=== PATIENT | male | born 1960 | race Caucasian/White ===

== ENCOUNTER → 2017-05-28 | Outpatient (REF) | payer BC ==
[~2017-05-28] MED LIST: PERCOCET PO; [UNRECOGNIZED DRUG - REMARK] OR; no home meds
== END ==
LOC: M SMT 16:59
PROVIDERS: ATTEND Urology
DX: Z85.51 Personal history of malignant neoplasm of bladder (principal)

== ENCOUNTER → 2017-11-20 | Outpatient (REF) | payer BC | LOC: M SMT 17:01 | DX: Z85.51 Personal history of malignant neoplasm of bladder (principal) | CPT/HCPCS: 88108 ==

== ENCOUNTER → 2017-11-26 | Outpatient (CLI) | payer BC ==
[2017-11-26 14:46] LABS: PSA SCREENING 2.04 NG/ML (< 4.0)
== END ==
LOC: M SMT 10:11
DX: Z12.5 Encounter for screening for malignant neoplasm of prostate (principal)

== ENCOUNTER → 2018-05-16 | Outpatient (CLI) | payer BC | LOC: M RAD 16:04 | DX: Z12.2 Encounter for screening for malignant neoplasm of respiratory organs (principal); Z87.891 Personal history of nicotine dependence; R91.1 Solitary pulmonary nodule; Z90.2 Acquired absence of lung [part of] | CPT/HCPCS: G0297 ==

== ENCOUNTER → 2018-08-11 | Outpatient (REF) | payer BC, OTHER | LOC: M SMT 13:11 | PROVIDERS: ATTEND Urology | DX: Z85.51 Personal history of malignant neoplasm of bladder (principal) ==

== ENCOUNTER 2018-09-25 09:50 | Day surgery (SDC) | payer OTHER ==
[~2018-09-25] VITALS: Ht 180.3 cm; Wt 94.8 kg
[~2018-09-25 09:50] MED LIST changes: +NS 1,000 ML IV ONE; +OMEP20CA3 PO; +PROPOFOL 200 MG/20 ML VIAL As Ordered ONE
--- NOTE | 2018-09-25 12:03 | ROOR ---
Patient Name: Lang Sexton Procedure Date: 09/25/2018 11:45 AM Date of : 1960 Age: 58 Room: [facility] Gender: Male Note Status: Finalized Procedure: Colonoscopy Indications: Screening in patient at increased risk: Family history of 1st-degree relative with colorectal cancer Providers: Orlando Greene Jr, MD Referring MD: LYNNETTE SANDERS DO Requesting Provider: Medicines: Propofol per Anesthesia Complications: No immediate complications. Procedure: Pre-Anesthesia Assessment: - Prior to the procedure, a History and Physical was performed, and patient medications and allergies were reviewed. The patient is competent. The risks and benefits of the procedure and the sedation options and risks were discussed with the patient. All questions were answered and informed consent was obtained. Patient identification and proposed procedure were verified by the physician and the nurse in the pre-procedure area and in the procedure room. Mental Status Examination: alert and oriented. Airway Examination: normal oropharyngeal airway and neck mobility. Respiratory Examination: clear to auscultation. CV Examination: normal. ASA Grade Assessment: II - A patient with mild systemic disease. After reviewing the risks and benefits, the patient was deemed in satisfactory condition to undergo the procedure. The anesthesia plan was to use moderate sedation / analgesia (conscious sedation). Immediately prior to administration of medications, the patient was re-assessed for adequacy to receive sedatives. The heart rate, respiratory rate, oxygen saturations, blood pressure, adequacy of pulmonary ventilation, and response to care were monitored throughout the procedure. The physical status of the patient was re-assessed after the procedure. The Colonoscope was introduced through the anus and advanced to the cecum, identified by appendiceal orifice and ileocecal valve. The colonoscopy was performed without difficulty. The patient tolerated the procedure well. The quality of the bowel preparation was adequate. Findings: The rectum, recto-sigmoid colon, sigmoid colon, descending colon, transverse colon, ascending colon, cecum, appendiceal orifice and ileocecal valve appeared normal. Non-bleeding external and internal hemorrhoids were found during endoscopy. The hemorrhoids were moderate. Impression: - The rectum, recto-sigmoid colon, sigmoid colon, descending colon, transverse colon, ascending colon, cecum, appendiceal orifice and ileocecal valve are normal. - Non-bleeding external and internal hemorrhoids. - No specimens collected. Recommendation: - Repeat colonoscopy in 5 years for screening purposes. Orlando Greene MD Orlando Greene Jr, MD 09/25/2018 12:02:35 PM This report has been signed electronically. Number of Addenda: 0 Note Initiated On: 09/25/2018 11:45 AM Estimated Blood Loss: Estimated blood loss: none.
[2018-09-25 12:20] VITALS: BP 130/82
== END 2018-09-25 12:29 | disposition home or self-care (01) ==
LOC: M OPP 09:50
PROVIDERS: ATTEND Surgery
DX: Z12.11 Encounter for screening for malignant neoplasm of colon (principal); Z80.0 Family history of malignant neoplasm of digestive organs; K64.8 Other hemorrhoids; Z87.891 Personal history of nicotine dependence

== ENCOUNTER → 2019-05-18 | Outpatient (CLI) | payer BC, OTHER ==
[~2019-05-18] MED LIST changes: -NS 1,000 ML IV ONE; -OMEP20CA3 PO; +OMEP20CA4 PO; +OXYC1TAB23 PO; -PERCOCET PO; -PROPOFOL 200 MG/20 ML VIAL As Ordered ONE
--- NOTE | 2019-05-19 09:07 | REP ---
Clinical: Lung screening. History smoking. Comparison: 05/16/2018 Technique: Axial low-dose noncontrast images from the thoracic inlet to the upper abdomen using lung screening technique. Findings: Evidence of prior right upper lobectomy again noted with stable scarring along the periphery of the right hemithorax. Stable 6 mm noncalcified nodule in the right middle lobe (image 55) remains unchanged compared through 2013. No consolidation, new significant nodule or mass lesion is appreciated. No effusion. No pneumothorax. Tracheobronchial tree is relatively patent. Mediastinum is within normal limits / stable. Impression: Lung-RADS category II. Stable nodule and postsurgical changes. Management recommendations include annual low-dose CT evaluation. Electronically Signed by Rancho Rader MD 05/19/2019 08:59 A
== END ==
LOC: M RAD 16:19
PROVIDERS: ATTEND Internal Medicine Pulmonary Disease
DX: Z87.891 Personal history of nicotine dependence (principal); Z85.118 Personal history of other malignant neoplasm of bronchus and lung

== ENCOUNTER → 2019-08-14 | Outpatient (REF) | payer BC ==
[~2019-08-14] MED LIST changes: +OMEP1CAP73 PO; -OMEP20CA4 PO
== END ==
LOC: M SMT 16:45
PROVIDERS: ATTEND Urology
DX: Z85.51 Personal history of malignant neoplasm of bladder (principal)

== ENCOUNTER → 2019-08-24 | Outpatient (CLI) | payer BC ==
--- NOTE | 2019-08-25 07:51 | ECGEPIP ---
[facility] Test Date: 2019-08-24 Pat Name: SALINA SOUSA Department: Room: - Gender: Male Manager Er: MITRA : 1960 Requested By: EVELIA DE LA ROSA Order Number: [id number] Reading MD: Castillo Dorsey Measurements Intervals [place] Rate: 67 P: 63 RI: 142 QRS: 72 QRSD: 93 T: 74 QT: 384 QTc: 408 Interpretive Statements SINUS RHYTHM somewhat low limb voltage Otherwise normal Electronically Signed on 08-25-2019 7:51:14 EST by Castillo Dorsey
== END ==
LOC: M EKG 10:01
PROVIDERS: ATTEND Anesthesiology
DX: C34.90 Malignant neoplasm of unspecified part of unspecified bronchus or lung (principal)

== ENCOUNTER 2019-08-25 13:01 | Day surgery (SDC) | payer BC ==
[~2019-08-25] VITALS: Ht 180.3 cm; Wt 96.6 kg
[~2019-08-25 13:01] MED LIST changes: +LR 1,000 ML IV ONE; +ceFAZolin SOD 2 GM in IV 1 EA IV ONE
[2019-08-25] MEDS ORDERED: propofoL 200 MG/20 ML VIAL As Ordered ONE (14:08)
[2019-08-25] MEDS ORDERED: LIDOCAINE 2% INJ 100 MG/5 ML SDV (FOR ANES.) As Ordered ONE (14:08)
[2019-08-25] MEDS ORDERED: ONDANSETRON 4MG/2ML VIAL (J2405) As Ordered ONE (14:08)
[2019-08-25] MEDS ORDERED: fentaNYL 100 MCG/2 ML INJECTION (J3010) As Ordered ONE (14:08)
[2019-08-25] MEDS ORDERED: MIDAZOLAM INJ 2 MG/2 ML VIAL (J2250) As Ordered ONE (14:09)
[2019-08-25] MEDS ORDERED: BUPIVACAINE/EPIN 0.25% 30 ML VIAL As Ordered ONE (15:50)
[2019-08-25] MEDS ORDERED: dexameTHASONE 4 MG/ML 1ML VIAL (J1100) As Ordered ONE (16:00)
[2019-08-25] MEDS ORDERED: ACETAMINOPHEN 1000MG 100ML IV BTL (OFIRMEV) (J0131 PER 10MG) As Ordered ONE (16:44)
[2019-08-25] MEDS ORDERED: ONDANSETRON 4MG/2ML VIAL (J2405) IV PRN (17:45)
[2019-08-25] MEDS ORDERED: LR 1,000 ML IV SCH (17:45)
[2019-08-25] MEDS ORDERED: HYDROMORPHONE HCL 0.5 MG/ 0.5 ML SYRINGE (J1170 PER 1) IV PRN (17:45)
[2019-08-25] MEDS: fentaNYL 100 MCG/2 ML INJECTION (J3010) IV PRN ×4 (17:47→18:19)
[2019-08-25] MEDS: oxyCODONE 5MG TAB PO PRN ×2 (17:47→18:20)
[2019-08-25] MEDS ORDERED: oxyCODONE 5MG TAB PO PRN ×2 (18:00)
[2019-08-25 19:35] VITALS: BP 152/88
--- NOTE | 2019-08-26 14:58 | RO ---
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 PROCEDURE: Right small finger FDS tenolysis along with Av cesario placement, flexor sheath reconstruction along with dorsal capsulotomy of the proximal interphalangeal (PIP) and distal interphalangeal (DIP). SURGEON: Liu Ram MD CYCLE DIRECTOR: ANESTHESIA: Moderate sedation with local anesthesia. INDICATION: 58-year-old male who suffered an FDP laceration back in mid May. He likely had a partial laceration as he was lifting something heavy, shortly after he felt a pop and since that date he has been unable to flex his small finger. Unfortunately he did not present to my office until approximately 2 months afterwards, at which point he discussed a two stage flexor tendon reconstruction. We discussed the risks, including but not limited to, infection, damage to surrounding structures, and need for further surgery, and incomplete relief. Patient wished to proceed. PREOPERATIVE ANTIBIOTICS: 2 grams of Ancef. COMPLICATIONS: None. TOURNIQUET TIME: Approximately 52 minutes. ESTIMATED BLOOD LOSS: Minimal. OPERATIVE DESCRIPTION: Patient was brought back to the OR in supine position and underwent general anesthesia at which point the right arm was prepped and draped in the usual fashion. Then we had a time out confirming site, side and surgery, and once in agreement we made a Lelia type incision going all the way from the tip of the small finger down towards the distal palm crease. We elevated the skin flaps careful to identify the radial, ulnar and digital nerves and arteries, to preserve them. Once we entered into the palm, we released the A1 jg, identified FDS and FDP remnants still there. We then tried to pull on the FDP to have it release, but it was clearly well adherent to the area. We then lifted up the site of the previous laceration over the A3 jg and were able to identify FDS, which was actually in continuity, but FDP was lacerated here and thickly adhered to the surrounding area. We were able to debride the area and remove FDP from the sheath. Then using a combination of tenotomies and a Jean elevator we were able to reopen the area of adhesed tissue through the intact A2 jg and also released the remnant of the FDP distally and remove this. We had to do extensive tenolysis of the FDS in order to allow free movement, but by the end of this were able to pull on the FDS in the palm and flex the PIP. Due to joint contractures, which had occurred, at this point we elevated the skin on the radial aspect of the finger in order to get slightly dorsally and do a dorsal capsulotomy in both the DIP and the PIP. After manual manipulation we were able complete the dorsal capsulotomy and able to get full range of motion of the DIP and PIP. At this point, we selected a 4 mm 25 cm Av cesario, from [employer], and secured it to the distal aspect of the flexor sheath with a mattress suture using #3-0 Prolene. We then sutured it to the stump of the FDP in the palm with #3-0 Prolene and passed our remaining portion about 4-6 cm proximal to the proximal wrist crease by making a small transverse incision over the ulnar aspect of the forearm and passing a Paul instrument deep down along the interosseous membrane through the carpal tunnel and into the palm, we added a whipstitch at the end of the Av cesario with #2-0 Vicryl and used this to pass it proximally, at which point we pulled it just past the skin and removed the tail end letting it lay freely in the distal forearm. At this point, we were happy with our reconstruction so we repaired the A3 jg with #3-0 PDS, irrigated the wounds thoroughly and closed the Lelia type incision with #3-0 nylon along with the transverse incision in the forearm. We then placed a dressing of Adaptic, gauze, Kerlix and Chris over the finger. The patient was awakened and taken to the PACU in stable condition. POSTOPERATIVE PLAN: We will see him soon within the week in the office for wound check at that time and get him into physical therapy to immediately start range of motion. JERRELL
== END 2019-08-25 20:04 | disposition home or self-care (01) ==
LOC: M SDC 13:01
PROVIDERS: ATTEND Orthopaedic Surgery Hand Surgery
DX: S56.127A Laceration of flexor muscle, fascia and tendon of right little finger at forearm level, initial encounter (principal); X50.0XXA Overexertion from strenuous movement or load, initial encounter; Y92.89 Other specified places as the place of occurrence of the external cause; K21.9 Gastro-esophageal reflux disease without esophagitis; M54.5 Low back pain; Z85.118 Personal history of other malignant neoplasm of bronchus and lung; Z90.2 Acquired absence of lung [part of]; Z85.51 Personal history of malignant neoplasm of bladder; Z87.891 Personal history of nicotine dependence; Z79.899 Other long term (current) drug therapy
CPT/HCPCS: 26390; 26442; 26525; C1763; J0131; J0690; J1100; J2250; J2405; J3010

== ENCOUNTER → 2019-11-13 | Outpatient (CLI) | payer BC ==
[~2019-11-13] MED LIST changes: -LR 1,000 ML IV ONE; -ceFAZolin SOD 2 GM in IV 1 EA IV ONE
== END ==
LOC: M LABSMTC 10:36
PROVIDERS: ATTEND Anesthesiology
DX: Z01.818 Encounter for other preprocedural examination (principal); Z11.59 Encounter for screening for other viral diseases

== ENCOUNTER 2019-11-16 12:42 | Day surgery (SDC) | payer BC ==
[~2019-11-16] VITALS: Ht 180.3 cm; Wt 97.5 kg
[~2019-11-16 12:42] MED LIST changes: +LIDOCAINE 1% MDV 20ML VIAL SQ PRN; +LR 1,000 ML IV ONE
[2019-11-16] MEDS ORDERED: ceFAZolin SOD 2 GM in IV 1 EA IV ONE (16:30)
[2019-11-16] MEDS ORDERED: BUPIVACAINE/EPIN 0.25% 30 ML VIAL As Ordered ONE (18:01)
[2019-11-16] MEDS ORDERED: dexameTHASONE 4 MG/ML 1ML VIAL (J1100 PER 1MG) As Ordered ONE (18:12)
[2019-11-16] MEDS ORDERED: LIDOCAINE 2% 100MG/5ML SDV (FOR ANES.) As Ordered ONE (18:12)
[2019-11-16] MEDS ORDERED: MIDAZOLAM INJ 2MG/2ML VIAL (J2250 PER 1MG) As Ordered ONE (18:12)
[2019-11-16] MEDS ORDERED: METOCLOPRAMIDE INJ 10MG/2ML VIAL (J2765 PER 1) As Ordered ONE (18:12)
[2019-11-16] MEDS ORDERED: KETOROLAC 60 MG/2 ML VIAL As Ordered ONE (18:12)
[2019-11-16] MEDS ORDERED: ROCURONIUM BROMIDE 50 MG/5 ML VIAL As Ordered ONE ×2 (18:12→20:13)
[2019-11-16] MEDS ORDERED: fentaNYL 250 MCG/5 ML INJECTION (J3010) As Ordered ONE (18:12)
[2019-11-16] MEDS ORDERED: propofoL 200 MG/20 ML VIAL As Ordered ONE (18:12)
[2019-11-16] MEDS ORDERED: SUGAMMADEX SODIUM 500 MG/5 ML VIAL (BRIDION) As Ordered ONE (18:12)
[2019-11-16] MEDS ORDERED: ONDANSETRON 4MG/2ML VIAL As Ordered ONE (18:12)
[2019-11-16] MEDS ORDERED: ACETAMINOPHEN 1000MG 100ML IV BTL (OFIRMEV) (J0131 PER 10MG) As Ordered ONE (19:27)
[2019-11-16] MEDS: fentaNYL 100 MCG/2 ML INJECTION (J3010) IV PRN ×4 (19:50→20:15)
[2019-11-16] MEDS ORDERED: fentaNYL 100 MCG/2 ML INJECTION (J3010) As Ordered ONE (20:00)
[2019-11-16] MEDS: PERCOCET 5MG/325MG TAB PO PRN ×2 (20:00→20:34)
[2019-11-16] MEDS ORDERED: PERCOCET 5MG/325MG TAB As Ordered ONE (20:00)
[2019-11-16] MEDS ORDERED: ONDANSETRON 4MG/2ML VIAL IV PRN (20:15)
[2019-11-16] MEDS ORDERED: LR 1,000 ML IV SCH (20:15)
[2019-11-16] MEDS ORDERED: oxyCODONE 5MG TAB PO PRN (20:15)
[2019-11-16 21:52] VITALS: BP 148/71
--- NOTE | 2019-11-16 22:22 | RO ---
DATE OF PROCEDURE: 11/16/2019 PREPROCEDURE DIAGNOSIS: Right small finger chronic flexor tendon laceration, status post Av cesario placement. POSTPROCEDURE DIAGNOSIS: Right small finger chronic flexor tendon laceration, status post Av cesario placement. PROCEDURE: Right small finger removal of Av cesario, flexor digitorum profundus (FDP) reconstruction with palmaris longus autograft. SURGEON: Liu Ram MD TRANSPORT DRIVER: None. ANESTHESIA: General. PREOPERATIVE ANTIBIOTICS: 2 grams of Ancef. BLOOD LOSS: Minimal. TOURNIQUET TIME: 1.5 hours COMPLICATIONS: None. SPECIMENS: None. INDICATIONS: A 59-year-old male who suffered a chronic flexor tendon laceration in both his FDP and FDS in the early fall, underwent a Av cesario placement after presenting in a chronic fashion. We discussed the risks and benefits of further procedure and restore flexion to the small finger, including, but not limited to, infection, damage to surrounding structures, incomplete relief, and need for further surgery. Patient expressed understanding and agreement with our plan and wished to proceed. DESCRIPTION OF PROCEDURE: The patient was brought back to the operating room (OR) in the supine position, underwent general anesthesia. The right arm was prepped and draped in the usual fashion. We had a time-out to confirm site, side, and surgery. Once in agreement, we did an ulnar-sided wrist block. We then opened up the distal extent of our previous Lelia incision over the distal and middle phalanx, exposing the A5 gj. We sharply dissected the distal extent of the A5 jg exposing the FDP stump along with the Av cesario placement there. We then exposed our more proximal extent of the Lelia incision in the palm, dissected sharply through exposing the Av cesario deep in the palm. At this point, the proximal extent of the FDP stump was severely scarred and in poor condition. We then explored radially and identified the FDP to the small finger. At this point, we made the decision to harvest our palmaris longus graft. We made a small transverse incision overlying the distal wrist crease, placed the hemostat and retrieved the palmaris longus from the wound. It was placed under tension to identify musculotendinous junction proximally. We made a 1 cm incision proximally exposing the muscle belly at the musculotendinous junction of palmaris longus. We pulled it out of the wound, at which point we used a skin blade to transect it. And then using hemostat, brought it out of our distal wound, at which point we pulled traction on it and used a #15 blade deep to remove it from its insertion to get maximal length, at which point, we removed any muscle bellies remaining on the tendon with an osteotome. We then retrieved the proximal center of a Av cesario and sutured it to the distal extent of our palmaris longus graft with a #3-0 Vicryl, and used this to pass it through the new flexor sheath. Once the graft was placed through the sheath, we removed the Av cesario completely. We then debrided the distal phalanx of the stump using curettes, prepped the bone, at which point we inserted a 1.75 x 5 mm Katiuska corkscrew with Arthrex loaded with #3-0 FiberWire. We then placed a whipstitch with #3-0 PDS through the distal extent of the palmaris longus graft and used a Cristi needle to pass those limbs dorsally, radial and ulnar to the distal phalanx minding to not injure the nail bed distally. We then placed a horizontal mattress stitch using the #3-0 FiberWire, we anchored to compress the graft to the distal phalanx. Once it was secured in place, we made a dorsal incision just proximal to our Cristi needle PDS stitches, made a U-type incision, retrieved the #3-0 PDS through this wound and tied it over the dorsal aspect of the distal phalanx in a [id number] fashion. At this point, we were very happy with our fixation distally. We then turned proximally. We pulled the ring finger FDP deep out of the palm and secured it proximally to our palmaris longus graft in a Pulvertaft repair using an #11 blade to pass the suture through the FDP for the ring finger. This was secured in place using multiple interrupted #4-0 Ethibond sutures. We were happy with the cascade. We were able to note it was just over tightened in the ring finger and there was a nice cascade that had developed as result. Once we were happy with how well secured it was, we removed the excess palmaris longus graft. We checked our tenodesis, and we were very happy with our fixation and graft placement, at which point we irrigated the wound thoroughly throughout and closed them with #3-0 nylon. We then placed the patient in a dorsal blocking splint with the wrist in flexion. Patient was awakened and taken to the post-anesthesia care unit (PACU) in stable condition. POSTOPERATIVE PLAN: Patient will be seen immediately over the next couple of days by his physical therapist, have a Thermoplastic splint made, and clips glued to his nails to start the Feliciaert protocol. I will see him at 2 weeks, at which point I will remove the sutures. The patient expressed understanding and agreement with that plan ahead of time. JERRELL
== END 2019-11-16 22:00 | disposition home or self-care (01) ==
LOC: M SDC 12:42
PROVIDERS: ATTEND Orthopaedic Surgery Hand Surgery
DX: S66.106A Unspecified injury of flexor muscle, fascia and tendon of right little finger at wrist and hand level, initial encounter (principal); X58.XXXA Exposure to other specified factors, initial encounter; Y92.89 Other specified places as the place of occurrence of the external cause; Y93.9 Activity, unspecified; Y99.9 Unspecified external cause status; K21.9 Gastro-esophageal reflux disease without esophagitis; N40.0 Benign prostatic hyperplasia without lower urinary tract symptoms; Z85.118 Personal history of other malignant neoplasm of bronchus and lung; Z85.51 Personal history of malignant neoplasm of bladder; Z90.2 Acquired absence of lung [part of]; Z92.21 Personal history of antineoplastic chemotherapy; Z79.899 Other long term (current) drug therapy
CPT/HCPCS: 26392; C1713; J0131; J0690; J1100; J1885; J2250; J2405; J2765; J3010

== ENCOUNTER → 2020-08-22 | Outpatient (REF) | payer BC ==
[~2020-08-22] MED LIST changes: -LIDOCAINE 1% MDV 20ML VIAL SQ PRN; -LR 1,000 ML IV ONE
== END ==
LOC: M SMT 19:07
PROVIDERS: ATTEND Urology
DX: Z85.51 Personal history of malignant neoplasm of bladder (principal)

== ENCOUNTER → 2021-07-19 | Outpatient (CLI) | payer BC | LOC: M RAD 15:36 | PROVIDERS: ATTEND Internal Medicine Pulmonary Disease | DX: Z12.2 Encounter for screening for malignant neoplasm of respiratory organs (principal); F17.218 Nicotine dependence, cigarettes, with other nicotine-induced disorders ==

== ENCOUNTER → 2021-08-21 | Outpatient (REF) | payer BC | LOC: M SMT 16:43 | PROVIDERS: ATTEND Urology | DX: Z85.51 Personal history of malignant neoplasm of bladder (principal) ==

== ENCOUNTER → 2022-07-27 | Outpatient (CLI) | payer BC ==
[2022-07-27 16:04] LABS: APPEARANCE, URINE MANUAL CLEAR (CLEAR); BILIRUBIN, URINE MANUAL NEGATIVE (NEGATIVE); BLOOD URINE MANUAL NEGATIVE (NEGATIVE); COLOR, URINE MANUAL YELLOW (YELLOW); GLUCOSE, URINE (UA) MANUAL NEGATIVE (NEGATIVE); KETONE, URINE MANUAL NEGATIVE (NEGATIVE); LEUKOCYTE ESTERASE, URINE MAN NEGATIVE (NEGATIVE); NITRITE, URINE MANUAL NEGATIVE (NEGATIVE); PROTEIN, URINE MANUAL NEGATIVE (NEGATIVE); SPECIFIC GRAVITY,URINE MANUAL 1.025 (1.002-1.035); UROBILINOGEN, URINE MANUAL NORMAL (NORMAL)
[2022-07-27 16:10] LABS: HEMATOCRIT 49.3 % (42.0-52.0); HEMOGLOBIN 15.9 g/dl (13.5-17.5); MEAN CORPUSCULAR HEMOGLOBIN 29.3 pg (27.0-33.0); MEAN CORPUSCULAR HGB CONC 32.3 g/dl (32.0-36.5); PLATELET COUNT, AUTOMATED 235 10^3/uL (150-450); RED BLOOD COUNT 5.42 10^6/uL (4.30-6.10); WHITE BLOOD COUNT 6.4 10^3/uL (4.0-10.0)
[2022-07-27 16:26] LABS: ALBUMIN 3.7 G/DL (3.2-5.2); ALKALINE PHOSPHATASE 81 U/L (46-116); ALT/SGPT 32 U/L (7.0-40); AST/SGOT 22 U/L (<34); BILIRUBIN,TOTAL 0.6 MG/DL (0.3-1.2); BLOOD UREA NITROGEN 17 MG/DL (9-23); CALCIUM LEVEL 9.2 MG/DL (8.3-10.6); CARBON DIOXIDE LEVEL 28 MMOL/L (20-31); CHLORIDE LEVEL 106 MMOL/L (98-107); CHOLESTEROL LEVEL 198 MG/DL (<200); CHOLESTEROL RISK RATIO 6.73 (<5); CREATININE FOR GFR 0.98 MG/DL (0.70-1.30); GLOMERULAR FILTRATION RATE > 60.0 (>49); GLUCOSE, FASTING 92 MG/DL (74-106); HDL CHOLESTEROL 29.4 MG/DL (>40); LDL CHOLESTEROL 123.2 MG/DL (<100); NON-HDL-C 169 MG/DL; POTASSIUM SERUM 4.4 MMOL/L (3.5-5.1); SODIUM LEVEL 142 MMOL/L (136-145); TOTAL PROTEIN 6.2 G/DL (5.7-8.2); TRIGLYCERIDES LEVEL 227 MG/DL (<150)
== END ==
LOC: M PLALAB 13:59
PROVIDERS: ATTEND Family Medicine
DX: K21.9 Gastro-esophageal reflux disease without esophagitis (principal); E78.5 Hyperlipidemia, unspecified; Z85.51 Personal history of malignant neoplasm of bladder

== ENCOUNTER → 2022-08-17 | Outpatient (CLI) | payer BC | LOC: M RAD 09:56 | PROVIDERS: ATTEND Internal Medicine Pulmonary Disease | DX: Z12.2 Encounter for screening for malignant neoplasm of respiratory organs (principal); Z87.891 Personal history of nicotine dependence ==

== ENCOUNTER → 2022-08-21 | Outpatient (REF) | payer BC | LOC: M SMT 12:38 | PROVIDERS: ATTEND Urology | DX: R82.89 Other abnormal findings on cytological and histological examination of urine (principal); Z85.51 Personal history of malignant neoplasm of bladder ==

== ENCOUNTER → 2022-09-06 | Outpatient (CLI) | payer OTHER | LOC: M PLAIMG 06:36 | PROVIDERS: ATTEND Pain Medicine Interventional Pain Medicine | DX: M54.16 Radiculopathy, lumbar region (principal) ==

== ENCOUNTER → 2022-10-17 | Outpatient (CLI) | payer BC ==
[~2022-10-17] MED LIST changes: +IBUP-1022 PO; +METH-1164 PO
== END ==
LOC: M RAD 10:40
PROVIDERS: ATTEND Family Medicine
DX: Z85.51 Personal history of malignant neoplasm of bladder (principal)

== ENCOUNTER 2022-10-25 22:14 | Emergency (ER) | payer BC ==
[~2022-10-25] VITALS: Ht 175.3 cm; Wt 98.3 kg
[~2022-10-25 22:14] MED LIST changes: -IBUP-1022 PO; -METH-1164 PO
[2022-10-26] MEDS ORDERED: methocarbamoL 500 MG TAB PO ONE (00:50)
[2022-10-26] MEDS ORDERED: KETOROLAC 60MG 2ML VIAL IM ONE (00:50)
[2022-10-26] MEDS ORDERED: METH-1164 PO (01:17)
[2022-10-26] MEDS ORDERED: IBUP-1022 PO (01:17)
[2022-10-26 01:59] VITALS: BP 150/88
== END 2022-10-26 02:02 | disposition home or self-care (01) ==
LOC: M ED 22:14
DX: S29.012A Strain of muscle and tendon of back wall of thorax, initial encounter (principal); K21.9 Gastro-esophageal reflux disease without esophagitis; Z87.891 Personal history of nicotine dependence; Z79.1 Long term (current) use of non-steroidal anti-inflammatories (NSAID); Z79.83 Long term (current) use of bisphosphonates; Z79.899 Other long term (current) drug therapy
CPT/HCPCS: 72072; 96372; 99283; J1885

== ENCOUNTER → 2023-05-01 | Outpatient (CLI) | payer BC ==
[~2023-05-01] MED LIST changes: +IBUP-1022 PO; +METH-1164 PO
[2023-05-01 11:29] LABS: APPEARANCE, URINE CLEAR (CLEAR); BACTERIA, URINE AUTO NEGATIVE (NEGATIVE); BASO % 0.6 % (0.0-1.0); BILIRUBIN, URINE AUTO NEGATIVE (NEGATIVE); BLOOD, URINE BLOOD NEGATIVE (NEGATIVE); COLOR, URINE YELLOW (YELLOW); EOS # 0.1 10^3/uL (0.0-0.5); EOS % 1.5 % (0.0-3.0); GLUCOSE, URINE (UA) AUTO NEGATIVE (NEGATIVE); HEMATOCRIT 47.8 % (42.0-52.0); HEMOGLOBIN 15.7 g/dl (13.5-17.5); KETONE, URINE AUTO NEGATIVE (NEGATIVE); LEUKOCYTE ESTERASE, URINE AUTO NEGATIVE (NEGATIVE); LYMPH # 1.9 10^3/uL (1.5-5.0); MEAN CORPUSCULAR HGB CONC 32.8 g/dl (32.0-36.5); MEAN CORPUSCULAR VOLUME 91.2 fl (80.0-96.0); MONO # 0.8 10^3/uL (0.0-0.8); MONO % 12.3 % (2.0-8.0); MUCUS, URINE SMALL (NEGATIVE); NEUTROPHILS # 3.7 10^3/uL (1.5-8.5); NEUTROPHILS % 56.4 % (36.0-66.0); NITRITE, URINE AUTO NEGATIVE (NEGATIVE); PLATELET COUNT, AUTOMATED 233 10^3/uL (150-450); PROTEIN, URINE AUTO NEGATIVE (NEGATIVE); RBC, URINE AUTO 0 /HPF (0-3); RED BLOOD COUNT 5.24 10^6/uL (4.30-6.10); SPECIFIC GRAVITY URINE AUTO 1.024 (1.002-1.035); SQUAMOUS EPITHELIAL CELL UR AU 0 /HPF (0-6); WBC, URINE AUTO 0 /HPF (0-3); WHITE BLOOD COUNT 6.5 10^3/uL (4.0-10.0)
[2023-05-01 12:12] LABS: ALBUMIN 3.8 G/DL (3.2-5.2); ALKALINE PHOSPHATASE 86 U/L (46-116); ALT/SGPT 25 U/L (7.0-40); AST/SGOT 15 U/L (<34); BILIRUBIN,TOTAL 0.7 MG/DL (0.3-1.2); BLOOD UREA NITROGEN 18 MG/DL (9-23); CARBON DIOXIDE LEVEL 27 MMOL/L (20-31); CHLORIDE LEVEL 105 MMOL/L (98-107); CHOLESTEROL LEVEL 193 MG/DL (<200); CHOLESTEROL RISK RATIO 6.24 (<5); CREATININE FOR GFR 1.06 MG/DL (0.70-1.30); GLOMERULAR FILTRATION RATE > 60.0 (>49); GLUCOSE, FASTING 103 MG/DL (74-106); HDL CHOLESTEROL 30.9 MG/DL (>40); LDL CHOLESTEROL 131.3 MG/DL (<100); NON-HDL-C 162.1 MG/DL; SODIUM LEVEL 141 MMOL/L (136-145); TOTAL PROTEIN 6.3 G/DL (5.7-8.2); TRIGLYCERIDES LEVEL 154 MG/DL (<150)
== END ==
LOC: M PLALAB 08:22
PROVIDERS: ATTEND Family Medicine
DX: E78.5 Hyperlipidemia, unspecified (principal)

== ENCOUNTER → 2023-08-26 | Outpatient (REF) | payer BC | LOC: M SMT 15:29 | PROVIDERS: ATTEND Urology | DX: Z85.51 Personal history of malignant neoplasm of bladder (principal) ==

== ENCOUNTER → 2023-08-29 | Outpatient (CLI) | payer BC ==
[2023-08-29 15:13] LABS: HEMATOCRIT 48.8 % (42.0-52.0); HEMOGLOBIN 16.1 g/dl (13.5-17.5); MEAN CORPUSCULAR HEMOGLOBIN 29.5 pg (27.0-33.0); MEAN CORPUSCULAR VOLUME 89.5 fl (80.0-96.0); PLATELET COUNT, AUTOMATED 217 10^3/uL (150-450); RED BLOOD COUNT 5.45 10^6/uL (4.30-6.10); WHITE BLOOD COUNT 6.4 10^3/uL (4.0-10.0)
[2023-08-29 15:41] LABS: ALBUMIN 3.8 G/DL (3.2-5.2); ALKALINE PHOSPHATASE 84 U/L (46-116); ALT/SGPT 24 U/L (7.0-40); AST/SGOT 12 U/L (<34); BILIRUBIN,TOTAL 0.5 MG/DL (0.3-1.2); BLOOD UREA NITROGEN 16 MG/DL (9-23); CALCIUM LEVEL 9.3 MG/DL (8.3-10.6); CARBON DIOXIDE LEVEL 27 MMOL/L (20-31); CHLORIDE LEVEL 105 MMOL/L (98-107); CHOLESTEROL LEVEL 182 MG/DL (<200); CHOLESTEROL RISK RATIO 5.61 (<5); CREATININE FOR GFR 1.02 MG/DL (0.70-1.30); GLOMERULAR FILTRATION RATE > 60.0 (>49); GLUCOSE, FASTING 89 MG/DL (74-106); HDL CHOLESTEROL 32.4 MG/DL (>40); LDL CHOLESTEROL 114.8 MG/DL (<100); NON-HDL-C 149.6 MG/DL; POTASSIUM SERUM 4.3 MMOL/L (3.5-5.1); SODIUM LEVEL 138 MMOL/L (136-145); TOTAL PROTEIN 6.4 G/DL (5.7-8.2); TRIGLYCERIDES LEVEL 174 MG/DL (<150)
[2023-08-29 15:45] LABS: APPEARANCE, URINE CLEAR (CLEAR); BACTERIA, URINE AUTO NEGATIVE (NEGATIVE); BILIRUBIN, URINE AUTO NEGATIVE (NEGATIVE); BLOOD, URINE BLOOD NEGATIVE (NEGATIVE); COLOR, URINE YELLOW (YELLOW); GLUCOSE, URINE (UA) AUTO NEGATIVE (NEGATIVE); KETONE, URINE AUTO NEGATIVE (NEGATIVE); LEUKOCYTE ESTERASE, URINE AUTO NEGATIVE (NEGATIVE); MUCUS, URINE SMALL (NEGATIVE); NITRITE, URINE AUTO NEGATIVE (NEGATIVE); PROTEIN, URINE AUTO NEGATIVE (NEGATIVE); RBC, URINE AUTO 0 /HPF (0-3); SPECIFIC GRAVITY URINE AUTO 1.016 (1.002-1.035); SQUAMOUS EPITHELIAL CELL UR AU 0 /HPF (0-6); UROBILINOGEN, URINE AUTO 0.2 mg/dL (0.0-2.0); WBC, URINE AUTO 0 /HPF (0-3)
== END ==
LOC: M PLALAB 10:57
PROVIDERS: ATTEND Family Medicine
DX: E78.5 Hyperlipidemia, unspecified (principal)

== ENCOUNTER → 2023-09-04 | Outpatient (CLI) | payer BC | LOC: M RAD 06:42 | PROVIDERS: ATTEND Internal Medicine Pulmonary Disease | DX: Z12.2 Encounter for screening for malignant neoplasm of respiratory organs (principal); Z87.891 Personal history of nicotine dependence ==

== ENCOUNTER → 2023-12-12 | Day surgery (SDC) | payer BC, MEDICARE ==
[~2023-12-12] VITALS: Ht 175.3 cm; Wt 91.9 kg
[~2023-12-12] MED LIST changes: +OMEP40CA5 PO; +propofoL 200 MG/20 ML VIAL As Ordered ONE
[2023-12-12] MEDS: NS 1,000 ML IV ONE (07:14)
[2023-12-12 07:53] VITALS: TEMP 97.4
[2023-12-12 08:14] VITALS: BP 134/67; O2SAT 98
== END | disposition home or self-care (01) ==
LOC: M OPP 06:41
PROVIDERS: ATTEND Surgery
DX: Z12.11 Encounter for screening for malignant neoplasm of colon (principal); Z80.0 Family history of malignant neoplasm of digestive organs; Z87.891 Personal history of nicotine dependence; Z79.899 Other long term (current) drug therapy

== ENCOUNTER → 2023-12-26 | Outpatient (CLI) | payer MEDICARE ==
[~2023-12-26] MED LIST changes: -propofoL 200 MG/20 ML VIAL As Ordered ONE
== END ==
LOC: M RAD 16:43
PROVIDERS: ATTEND Student in an Organized Health Care Education/Training Program
DX: S20.211A Contusion of right front wall of thorax, initial encounter (principal); Y93.9 Activity, unspecified; Y92.9 Unspecified place or not applicable

== ENCOUNTER → 2024-04-30 | Outpatient (CLI) | payer MEDICARE ==
[2024-04-30 15:03] LABS: APPEARANCE, URINE HAZY (CLEAR); BACTERIA, URINE AUTO NEGATIVE (NEGATIVE); BILIRUBIN, URINE AUTO NEGATIVE (NEGATIVE); BLOOD, URINE BLOOD NEGATIVE (NEGATIVE); COLOR, URINE YELLOW (YELLOW); GLUCOSE, URINE (UA) AUTO NEGATIVE (NEGATIVE); KETONE, URINE AUTO NEGATIVE (NEGATIVE); LEUKOCYTE ESTERASE, URINE AUTO NEGATIVE (NEGATIVE); MUCUS, URINE SMALL (NEGATIVE); NITRITE, URINE AUTO NEGATIVE (NEGATIVE); PROTEIN, URINE AUTO NEGATIVE (NEGATIVE); RBC, URINE AUTO 0 /HPF (0-3); SPECIFIC GRAVITY URINE AUTO 1.021 (1.002-1.035); SQUAMOUS EPITHELIAL CELL UR AU 0 /HPF (0-6); UROBILINOGEN, URINE AUTO 0.2 mg/dL (0.0-2.0); WBC, URINE AUTO 1 /HPF (0-3)
[2024-04-30 15:06] LABS: BASO # 0.1 10^3/uL (0.0-0.2); BASO % 0.7 % (0.0-1.0); EOS # 0.1 10^3/uL (0.0-0.5); EOS % 0.8 % (0.0-3.0); HEMATOCRIT 49.8 % (42.0-52.0); HEMOGLOBIN 16.4 g/dl (13.5-17.5); LYMPH # 1.9 10^3/uL (1.5-5.0); LYMPH % 27.2 % (24.0-44.0); MEAN CORPUSCULAR HEMOGLOBIN 30.1 pg (27.0-33.0); MEAN CORPUSCULAR HGB CONC 32.9 g/dl (32.0-36.5); MEAN CORPUSCULAR VOLUME 91.5 fl (80.0-96.0); MONO # 0.7 10^3/uL (0.0-0.8); MONO % 9.4 % (2.0-8.0); NEUTROPHILS # 4.4 10^3/uL (1.5-8.5); NEUTROPHILS % 61.6 % (36.0-66.0); PLATELET COUNT, AUTOMATED 231 10^3/uL (150-450); RED BLOOD COUNT 5.44 10^6/uL (4.30-6.10); WHITE BLOOD COUNT 7.1 10^3/uL (4.0-10.0)
[2024-04-30 15:35] LABS: ALBUMIN 3.7 G/DL (3.2-5.2); ALKALINE PHOSPHATASE 87 U/L (46-116); ALT/SGPT 40 U/L (7.0-40); AST/SGOT 19 U/L (<34); BILIRUBIN,TOTAL 0.7 MG/DL (0.3-1.2); BLOOD UREA NITROGEN 10 MG/DL (9-23); CALCIUM LEVEL 9.5 MG/DL (8.3-10.6); CARBON DIOXIDE LEVEL 30 MMOL/L (20-31); CHLORIDE LEVEL 109 MMOL/L (98-107); GLOMERULAR FILTRATION RATE > 60.0 (>49); GLUCOSE, FASTING 114 MG/DL (74-106); POTASSIUM SERUM 4.5 MMOL/L (3.5-5.1); SODIUM LEVEL 142 MMOL/L (136-145); TOTAL PROTEIN 6.5 G/DL (5.7-8.2)
== END ==
LOC: M PLALAB 12:33
PROVIDERS: ATTEND Family Medicine
DX: E78.5 Hyperlipidemia, unspecified (principal); K21.9 Gastro-esophageal reflux disease without esophagitis; N40.1 Benign prostatic hyperplasia with lower urinary tract symptoms

== ENCOUNTER → 2024-08-06 | Outpatient (CLI) | payer MEDICARE | LOC: M PLALAB 14:53 | PROVIDERS: ATTEND Family Medicine | DX: E29.1 Testicular hypofunction (principal); N52.9 Male erectile dysfunction, unspecified ==

== ENCOUNTER → 2024-10-05 | Outpatient (CLI) | payer MEDICARE | LOC: M RAD 13:05 | PROVIDERS: ATTEND Internal Medicine Pulmonary Disease | DX: Z12.2 Encounter for screening for malignant neoplasm of respiratory organs (principal); Z87.891 Personal history of nicotine dependence ==

== ENCOUNTER → 2024-11-13 | Outpatient (CLI) | payer MEDICARE ==
[2024-11-13 13:09] LABS: APPEARANCE, URINE CLEAR (CLEAR); BACTERIA, URINE AUTO NEGATIVE (NEGATIVE); BILIRUBIN, URINE AUTO NEGATIVE (NEGATIVE); BLOOD, URINE BLOOD NEGATIVE (NEGATIVE); COLOR, URINE YELLOW (YELLOW); GLUCOSE, URINE (UA) AUTO NEGATIVE (NEGATIVE); KETONE, URINE AUTO NEGATIVE (NEGATIVE); LEUKOCYTE ESTERASE, URINE AUTO NEGATIVE (NEGATIVE); NITRITE, URINE AUTO NEGATIVE (NEGATIVE); PROTEIN, URINE AUTO NEGATIVE (NEGATIVE); RBC, URINE AUTO 0 /HPF (0-3); SPECIFIC GRAVITY URINE AUTO 1.015 (1.002-1.035); SQUAMOUS EPITHELIAL CELL UR AU 0 /HPF (0-6); UROBILINOGEN, URINE AUTO 0.2 mg/dL (0.0-2.0); WBC, URINE AUTO 1 /HPF (0-3)
[2024-11-13 13:20] LABS: HEMATOCRIT 49.1 % (42.0-52.0); HEMOGLOBIN 16.2 g/dl (13.5-17.5); MEAN CORPUSCULAR HEMOGLOBIN 29.7 pg (27.0-33.0); MEAN CORPUSCULAR VOLUME 90.1 fl (80.0-96.0); PLATELET COUNT, AUTOMATED 242 10^3/uL (150-450); RED BLOOD COUNT 5.45 10^6/uL (4.30-6.10); WHITE BLOOD COUNT 6.4 10^3/uL (4.0-10.0)
[2024-11-13 13:21] LABS: ALBUMIN 3.8 G/DL (3.2-5.2); BILIRUBIN,TOTAL 0.7 MG/DL (0.3-1.2); CALCIUM LEVEL 9.5 MG/DL (8.3-10.6); CREATININE FOR GFR 1.03 MG/DL (0.70-1.30); GLOMERULAR FILTRATION RATE 80.1 (>49); POTASSIUM SERUM 4.2 MMOL/L (3.5-5.1); TOTAL PROTEIN 6.5 G/DL (5.7-8.2)
== END ==
LOC: M PLALAB 10:34
PROVIDERS: ATTEND Family Medicine
DX: E78.5 Hyperlipidemia, unspecified (principal); I10 Essential (primary) hypertension; R14.0 Abdominal distension (gaseous)

== ENCOUNTER → 2025-03-01 | Outpatient (CLI) | payer MEDICARE ==
[~2025-03-01] MED LIST changes: -IBUP-1022 PO; +IBUP600T42 PO
[2025-03-01 13:35] LABS: BASO # 0.1 10^3/uL (0.0-0.2); BASO % 1.0 % (0.0-1.0); EOS # 0.1 10^3/uL (0.0-0.5); EOS % 1.9 % (0.0-3.0); LYMPH # 1.8 10^3/uL (1.5-5.0); LYMPH % 30.2 % (24.0-44.0); MONO # 0.6 10^3/uL (0.0-0.8); MONO % 10.5 % (2.0-8.0); NEUTROPHILS # 3.3 10^3/uL (1.5-8.5); NEUTROPHILS % 56.1 % (36.0-66.0); PLATELET COUNT, AUTOMATED 249 10^3/uL (150-450)
[2025-03-01 14:04] LABS: ALT/SGPT 39.0 U/L (7.0-40); AST/SGOT 22.0 U/L (<34); CALCIUM LEVEL 9.5 MG/DL (8.3-10.6); CARBON DIOXIDE LEVEL 29.0 MMOL/L (20-31); CHLORIDE LEVEL 107.0 MMOL/L (98-107); CREATININE FOR GFR 1.01 MG/DL (0.70-1.30); GLOMERULAR FILTRATION RATE 82.0 (>49); POTASSIUM SERUM 4.9 MMOL/L (3.5-5.1); SODIUM LEVEL 143.0 MMOL/L (136-145)
[2025-03-01 14:11] LABS: ESTIMATED AVERAGE GLUCOSE 123.0 MG/DL (60-110)
[2025-03-01 15:41] LABS: APPEARANCE, URINE CLEAR (CLEAR); BACTERIA, URINE AUTO NEGATIVE (NEGATIVE); BILIRUBIN, URINE AUTO NEGATIVE (NEGATIVE); BLOOD, URINE BLOOD NEGATIVE (NEGATIVE); GLUCOSE, URINE (UA) AUTO NEGATIVE (NEGATIVE); KETONE, URINE AUTO NEGATIVE (NEGATIVE); LEUKOCYTE ESTERASE, URINE AUTO NEGATIVE (NEGATIVE); MUCUS, URINE SMALL (NEGATIVE); NITRITE, URINE AUTO NEGATIVE (NEGATIVE); PROTEIN, URINE AUTO NEGATIVE (NEGATIVE); RBC, URINE AUTO 0 /HPF (0-3); SPECIFIC GRAVITY URINE AUTO 1.020 (1.002-1.035); SQUAMOUS EPITHELIAL CELL UR AU 0 /HPF (0-6); UROBILINOGEN, URINE AUTO 0.2 mg/dL (0.0-2.0); WBC, URINE AUTO 0 /HPF (0-3)
== END ==
LOC: M PLALAB 11:07
PROVIDERS: ATTEND Family Medicine
DX: E78.5 Hyperlipidemia, unspecified (principal); R73.09 Other abnormal glucose; K21.9 Gastro-esophageal reflux disease without esophagitis

== ENCOUNTER → 2025-06-24 | Outpatient (CLI) | payer MEDICARE ==
[2025-06-24 13:21] LABS: BASO # 0.0 10^3/uL (0.0-0.2); BASO % 0.7 % (0.0-1.0); EOS # 0.1 10^3/uL (0.0-0.5); EOS % 1.6 % (0.0-3.0); LYMPH # 1.7 10^3/uL (1.5-5.0); LYMPH % 28.3 % (24.0-44.0); MONO # 0.6 10^3/uL (0.0-0.8); MONO % 9.8 % (2.0-8.0); NEUTROPHILS # 3.7 10^3/uL (1.5-8.5); NEUTROPHILS % 59.3 % (36.0-66.0); PLATELET COUNT, AUTOMATED 240 10^3/uL (150-450)
[2025-06-24 13:54] LABS: PROSTATIC SPECIFIC AG MONITOR 2.36 NG/ML (< 4.00)
[2025-06-24 13:58] LABS: ALT/SGPT 42.0 U/L (7.0-40); AST/SGOT 25.0 U/L (<34); CALCIUM LEVEL 9.0 MG/DL (8.3-10.6); CARBON DIOXIDE LEVEL 31.0 MMOL/L (20-31); CHLORIDE LEVEL 104.0 MMOL/L (98-107); CHOLESTEROL LEVEL 205.0 MG/DL (<200); CHOLESTEROL RISK RATIO 6.36 (<5); CREATININE FOR GFR 1.01 MG/DL (0.70-1.30); GLOMERULAR FILTRATION RATE 82.0 (>49); LDL CHOLESTEROL 132.0 MG/DL (<100); NON-HDL-C 172.8 MG/DL; POTASSIUM SERUM 4.8 MMOL/L (3.5-5.1); SODIUM LEVEL 143.0 MMOL/L (136-145); TRIGLYCERIDES LEVEL 204.0 MG/DL (<150)
[2025-06-24 15:28] LABS: APPEARANCE, URINE CLEAR (CLEAR); BACTERIA, URINE AUTO NEGATIVE (NEGATIVE); BILIRUBIN, URINE AUTO NEGATIVE (NEGATIVE); BLOOD, URINE BLOOD NEGATIVE (NEGATIVE); GLUCOSE, URINE (UA) AUTO NEGATIVE (NEGATIVE); KETONE, URINE AUTO NEGATIVE (NEGATIVE); LEUKOCYTE ESTERASE, URINE AUTO NEGATIVE (NEGATIVE); MUCUS, URINE SMALL (NEGATIVE); NITRITE, URINE AUTO NEGATIVE (NEGATIVE); PROTEIN, URINE AUTO NEGATIVE (NEGATIVE); RBC, URINE AUTO 0 /HPF (0-3); SPECIFIC GRAVITY URINE AUTO 1.019 (1.002-1.035); SQUAMOUS EPITHELIAL CELL UR AU 0 /HPF (0-6); UROBILINOGEN, URINE AUTO 0.2 mg/dL (0.0-2.0); WBC, URINE AUTO 0 /HPF (0-3)
== END ==
LOC: M PLALAB 11:34
PROVIDERS: ATTEND Family Medicine
DX: K21.9 Gastro-esophageal reflux disease without esophagitis (principal); E78.5 Hyperlipidemia, unspecified; F32.89 Other specified depressive episodes; R73.09 Other abnormal glucose; R35.1 Nocturia